=== PATIENT | female | born 1985 | race Caucasian/White ===

== ENCOUNTER 2019-10-27 15:28 | Inpatient (IN) ==
[2019-10-27] MEDS ORDERED: Isovue-370 500 ML BOTTLE IVP ONE (17:52)
[2019-10-27 18:31] LABS: Basophils # 0.1 K/mcL (0.0-0.2); Basophils % 0.6 %; Eosinophils # 0.4 K/mcL (0.0-0.6); Eosinophils % 4.5 %; Hematocrit 36.3 % (35.3-44.9); Hemoglobin 12.8 g/dL (11.5-15.4); Immature Granulocytes % 0.8 % (0-4); Lymphocytes # 1.5 K/mcL (0.6-4.6); Lymphocytes % 18.8 %; Mean Corpuscular HGB Conc 35.3 g/dL (31.6-35.5); Mean Corpuscular Hemoglobin 31.6 pg (28.0-33.3); Mean Corpuscular Volume 89.6 fL (83.0-100.0); Mean Platelet Volume 9.4 fL (9.4-12.4); Monocytes # 0.6 K/mcL (0.0-1.3); Monocytes % 7.9 %; Neutrophils # 5.3 K/mcL (1.6-8.9); Platelet Count 317 K/mcL (140-400); Red Blood Count 4.05 M/mcL (3.82-4.97); Red Cell Distribution Width 12.7 % (11.5-14.5); Segmented Neutrophils % 67.4 %; White Blood Count 7.8 K/mcL (4.3-11.1)
[2019-10-27 18:51] LABS: BUN/Creatinine Ratio 22 (6-26); Blood Urea Nitrogen 24 mg/dL (6-20); Calcium 9.4 mg/dL (8.6-10.3); Carbon Dioxide 26 mEq/L (23-29); Chloride 101 mEq/L (98-107); Glucose 101 mg/dL (70-105); Osmolality,Calculated 286 (280-300); Potassium 3.5 mEq/L (3.5-5.1); Sodium 136 mEq/L (136-145); eGFR For African Americans > 60 (> 60); eGFR For Non-African Americans 58 (> 60)
[2019-10-27] MEDS ORDERED: Piperacillin/Tazobactam 3.375 GM in 0.9 % Sodium Chloride Mini Bag 100 ML IVPB ONE (19:51)
[2019-10-27] MEDS ORDERED: Naloxone 0.4 MG/ML INJ IVP PRN ×2 (21:42→22:01)
[2019-10-27] MEDS ORDERED: Ondansetron 4 MG/2 ML VIAL IVP PRN (21:42)
[2019-10-27 22:14] LABS: Magnesium 2.2 mg/dL (1.6-2.6)
[2019-10-27] MEDS: 0.9 % Sodium Chloride 1,000 ML IVC SCH (22:51)
[2019-10-28 06:32] LABS: Basophils % 0.5 %; Eosinophils # 0.4 K/mcL (0.0-0.6); Eosinophils % 5.2 %; Hematocrit 35.6 % (35.3-44.9); Hemoglobin 12.1 g/dL (11.5-15.4); Lymphocytes # 2.6 K/mcL (0.6-4.6); Lymphocytes % 34.9 %; Mean Corpuscular Hemoglobin 31.1 pg (28.0-33.3); Mean Corpuscular Volume 91.5 fL (83.0-100.0); Monocytes # 0.7 K/mcL (0.0-1.3); Monocytes % 9.4 %; Neutrophils # 3.6 K/mcL (1.6-8.9); Platelet Count 284 K/mcL (140-400); Red Blood Count 3.89 M/mcL (3.82-4.97); Red Cell Distribution Width 12.9 % (11.5-14.5); White Blood Count 7.3 K/mcL (4.3-11.1)
[2019-10-28 06:55] LABS: Alanine Aminotransferase 53 Units/L (7-52); Albumin 3.1 g/dL (3.5-5.7); Albumin/Globulin Ratio 0.9 (1.1-2.2); Alkaline Phosphatase 95 Units/L (34-104); Aspartate Amino Transferase 36 Units/L (13-39); BUN/Creatinine Ratio 16 (6-26); Bilirubin,Total 0.3 mg/dL (0.3-1.0); Blood Urea Nitrogen 15 mg/dL (6-20); Calcium 8.5 mg/dL (8.6-10.3); Carbon Dioxide 22 mEq/L (23-29); Chloride 104 mEq/L (98-107); Globulin 3.3 g/dL (2.4-3.5); Glucose 73 mg/dL (70-105); Osmolality,Calculated 281 (280-300); Potassium 3.4 mEq/L (3.5-5.1); Sodium 136 mEq/L (136-145); Total Protein 6.4 g/dL (6.4-8.9); eGFR For African Americans > 60 (> 60); eGFR For Non-African Americans > 60 (> 60)
[2019-10-28] MEDS: 0.9 % Sodium Chloride 1,000 ML IVC SCH (06:59)
[2019-10-28] MEDS: Piperacillin/Tazobactam 3.375 GM in 0.9 % Sodium Chloride Mini Bag 100 ML IVPB SCH ×2 (09:08→17:15)
[2019-10-28] MEDS: *HR* Enoxaparin 40 MG/0.4 ML SYRINGE SQ SCH (09:09)
[2019-10-28] MEDS: BuPROPion XL (24 HR) 150 MG TABLET PO SCH (09:09)
[2019-10-28] MEDS ORDERED: Ketorolac 15 MG/ML VIAL IVP ONE (16:48)
[2019-10-28] MEDS: Gentamicin Oint 15 GM TUBE TP SCH (17:15)
[2019-10-28] MEDS: Methadone Oral Concentrate 50 MG/5 ML UDC PO SCH (18:22)
[2019-10-29] MEDS: Piperacillin/Tazobactam 3.375 GM in 0.9 % Sodium Chloride Mini Bag 100 ML IVPB SCH ×3 (00:39→15:19)
[2019-10-29 06:07] LABS: Basophils % 0.3 %; Eosinophils # 0.3 K/mcL (0.0-0.6); Eosinophils % 2.6 %; Hemoglobin 11.1 g/dL (11.5-15.4); Immature Granulocytes % 0.8 % (0-4); Lymphocytes # 2.4 K/mcL (0.6-4.6); Lymphocytes % 23.4 %; Mean Corpuscular HGB Conc 33.6 g/dL (31.6-35.5); Mean Corpuscular Hemoglobin 31.6 pg (28.0-33.3); Mean Platelet Volume 9.6 fL (9.4-12.4); Monocytes % 10.1 %; Neutrophils # 6.4 K/mcL (1.6-8.9); Platelet Count 256 K/mcL (140-400); Red Blood Count 3.51 M/mcL (3.82-4.97); Red Cell Distribution Width 12.8 % (11.5-14.5); Segmented Neutrophils % 62.8 %; White Blood Count 10.1 K/mcL (4.3-11.1)
[2019-10-29 06:31] LABS: Alanine Aminotransferase 50 Units/L (7-52); Albumin 3.1 g/dL (3.5-5.7); Alkaline Phosphatase 87 Units/L (34-104); Aspartate Amino Transferase 35 Units/L (13-39); BUN/Creatinine Ratio 12 (6-26); Bilirubin,Total 0.4 mg/dL (0.3-1.0); Blood Urea Nitrogen 12 mg/dL (6-20); Calcium 8.6 mg/dL (8.6-10.3); Carbon Dioxide 24 mEq/L (23-29); Chloride 106 mEq/L (98-107); Globulin 3.1 g/dL (2.4-3.5); Glucose 99 mg/dL (70-105); Osmolality,Calculated 286 (280-300); Potassium 3.7 mEq/L (3.5-5.1); Sodium 138 mEq/L (136-145); Total Protein 6.2 g/dL (6.4-8.9); eGFR For African Americans > 60 (> 60); eGFR For Non-African Americans > 60 (> 60)
[2019-10-29] MEDS: Gentamicin Oint 15 GM TUBE TP SCH (11:27)
[2019-10-29] MEDS: Methadone Oral Concentrate 50 MG/5 ML UDC PO SCH ×2 (11:28→18:14)
[2019-10-29] MEDS: *HR* Enoxaparin 40 MG/0.4 ML SYRINGE SQ SCH (11:28)
[2019-10-29] MEDS: BuPROPion XL (24 HR) 150 MG TABLET PO SCH (11:29)
[2019-10-29] MEDS ORDERED: Ondansetron ODT 4 MG TAB.RAPDIS SL ONE (14:59)
[2019-10-30] MEDS: Piperacillin/Tazobactam 3.375 GM in 0.9 % Sodium Chloride Mini Bag 100 ML IVPB SCH ×2 (00:14→09:21)
[2019-10-30 06:28] LABS: Basophils % 0.4 %; Eosinophils # 0.2 K/mcL (0.0-0.6); Eosinophils % 2.6 %; Hematocrit 34.5 % (35.3-44.9); Hemoglobin 11.3 g/dL (11.5-15.4); Lymphocytes # 1.9 K/mcL (0.6-4.6); Lymphocytes % 26.6 %; Mean Corpuscular HGB Conc 32.8 g/dL (31.6-35.5); Mean Corpuscular Hemoglobin 31.3 pg (28.0-33.3); Mean Corpuscular Volume 95.6 fL (83.0-100.0); Mean Platelet Volume 9.9 fL (9.4-12.4); Monocytes # 0.9 K/mcL (0.0-1.3); Monocytes % 12.7 %; Neutrophils # 4.1 K/mcL (1.6-8.9); Platelet Count 226 K/mcL (140-400); Red Blood Count 3.61 M/mcL (3.82-4.97); Red Cell Distribution Width 12.8 % (11.5-14.5); Segmented Neutrophils % 56.7 %; White Blood Count 7.3 K/mcL (4.3-11.1)
[2019-10-30 06:49] LABS: Albumin 3.2 g/dL (3.5-5.7); Bilirubin,Total 0.7 mg/dL (0.3-1.0); Globulin 3.3 g/dL (2.4-3.5); Total Protein 6.5 g/dL (6.4-8.9)
[2019-10-30] MEDS ORDERED: Aminoglycoside Consult 1 EACH MC ONE (07:35)
[2019-10-30] MEDS: BuPROPion XL (24 HR) 150 MG TABLET PO SCH (09:19)
[2019-10-30] MEDS: Methadone Oral Concentrate 50 MG/5 ML UDC PO SCH ×2 (09:19→18:19)
[2019-10-30] MEDS: Gentamicin Oint 15 GM TUBE TP SCH (09:20)
[2019-10-30] MEDS: *HR* Enoxaparin 40 MG/0.4 ML SYRINGE SQ SCH (09:21)
[2019-10-30] MEDS: Doxycycline 100 MG CAPSULE PO SCH (21:38)
[2019-10-31 08:25] LABS: Albumin 3.5 g/dL (3.5-5.7); Bilirubin,Total 0.5 mg/dL (0.3-1.0); Calcium 9.2 mg/dL (8.6-10.3); Globulin 3.4 g/dL (2.4-3.5); Potassium 3.9 mEq/L (3.5-5.1); Total Protein 6.9 g/dL (6.4-8.9)
[2019-10-31 08:27] LABS: Basophils # 0.1 K/mcL (0.0-0.2); Basophils % 0.6 %; Eosinophils # 0.2 K/mcL (0.0-0.6); Eosinophils % 2.3 %; Immature Granulocytes % 0.9 % (0-4); Lymphocytes # 2.2 K/mcL (0.6-4.6); Lymphocytes % 26.9 %; Mean Corpuscular HGB Conc 34.3 g/dL (31.6-35.5); Mean Corpuscular Hemoglobin 31.8 pg (28.0-33.3); Mean Corpuscular Volume 92.8 fL (83.0-100.0); Mean Platelet Volume 9.5 fL (9.4-12.4); Monocytes # 0.9 K/mcL (0.0-1.3); Monocytes % 10.6 %; Neutrophils # 4.7 K/mcL (1.6-8.9); Platelet Count 266 K/mcL (140-400); Red Blood Count 3.77 M/mcL (3.82-4.97); Red Cell Distribution Width 12.6 % (11.5-14.5); Segmented Neutrophils % 58.7 %; White Blood Count 8.1 K/mcL (4.3-11.1)
[2019-10-31] MEDS: Methadone Oral Concentrate 50 MG/5 ML UDC PO SCH ×2 (09:10→18:09)
[2019-10-31] MEDS: BuPROPion XL (24 HR) 150 MG TABLET PO SCH (09:11)
[2019-10-31] MEDS: Ondansetron 4 MG/2 ML VIAL IVP PRN (09:11)
[2019-10-31] MEDS: Gentamicin Oint 15 GM TUBE TP SCH (09:12)
[2019-10-31] MEDS: Doxycycline 100 MG CAPSULE PO SCH ×2 (09:12→21:07)
[2019-10-31] MEDS ORDERED: Acetaminophen 325 MG TABLET PO PRN (21:48)
[2019-10-31] MEDS: Acetaminophen 325 MG TABLET PO PRN (22:46)
[2019-11-01 01:18] LABS: Bilirubin,Urine Negative (Negative); Blood,Urine Large (Negative); Clarity,Urine Cloudy (Clear); Color,Urine Other (Yellow); Glucose,Urine (UA) Normal (Normal); Ketones,Urine Trace mg/dL (Negative); Leukocyte Esterase,Urine Small (Negative); Nitrite,Urine Negative (Negative); Protein,Urine 30 mg/dL (Neg-Trace); Urobilinogen,Urine Normal (Normal)
[2019-11-01 01:21] LABS: Bacteria,Urine None Seen per hpf (None-Few); Hyaline Casts,Urine None Seen per lpf (None-Few); RBC,Urine TNTC per hpf (0-3); Squamous Epithelial Cell,Urine Many per lpf (None-Few); WBC,Urine 15-30 per hpf (0-3)
[2019-11-01 06:22] LABS: Calcium 8.9 mg/dL (8.6-10.3); Potassium 3.6 mEq/L (3.5-5.1)
[2019-11-01] MEDS: BuPROPion XL (24 HR) 150 MG TABLET PO SCH (09:21)
[2019-11-01] MEDS: Doxycycline 100 MG CAPSULE PO SCH ×2 (09:22→20:56)
[2019-11-01] MEDS: Methadone Oral Concentrate 50 MG/5 ML UDC PO SCH ×2 (09:22→16:29)
[2019-11-01] MEDS: Gentamicin Oint 15 GM TUBE TP SCH (09:25)
[2019-11-01] MEDS: Acetaminophen 325 MG TABLET PO PRN (12:25)
[2019-11-01] MEDS: Ondansetron 4 MG/2 ML VIAL IVP PRN (16:47)
[2019-11-02 06:35] VITALS: BP 126/86
[2019-11-02] MEDS: Methadone Oral Concentrate 50 MG/5 ML UDC PO SCH (08:55)
[2019-11-02] MEDS: BuPROPion XL (24 HR) 150 MG TABLET PO SCH (08:56)
[2019-11-02] MEDS: Doxycycline 100 MG CAPSULE PO SCH (08:56)
[2019-11-02] MEDS: Gentamicin Oint 15 GM TUBE TP SCH (09:27)
[2019-11-02 10:22] LABS: Potassium 3.8 mEq/L (3.5-5.1)
== END 2019-11-02 13:15 | disposition home or self-care (01) | DRG 383 ==
LOC: 3BNU 15:28 → EMEROOARM 15:28 → 3BNU 22:22
PROVIDERS: ADMIT Internal Medicine; ATTEND Internal Medicine